=== PATIENT | female | born 1975 | race African-American/Black ===

== ENCOUNTER 2019-03-22 10:59 | Emergency (ER) | payer MEDICAID ==
[~2019-03-22] VITALS: Ht 167.6 cm; Wt 80.0 kg
[2019-03-22 11:27] VITALS: BP 140/80
== END 2019-03-22 11:41 | disposition home or self-care (01) ==
LOC: ER 10:59
DX: F43.20 Adjustment disorder, unspecified (principal); R42 Dizziness and giddiness; M79.7 Fibromyalgia; I10 Essential (primary) hypertension; F43.9 Reaction to severe stress, unspecified
CPT/HCPCS: 99283; 99284

== ENCOUNTER 2022-01-14 13:43 | Emergency (ER) | payer MEDICAID ==
[~2022-01-14] VITALS: Ht 157.5 cm; Wt 82.0 kg
[2022-01-14 13:47] VITALS: BP 140/83
[2022-01-14] MEDS ORDERED: IBUPROFEN 600MG TABLET PO ONE (14:45)
[2022-01-14] MEDS ORDERED: ACETAMINOPHEN 325MG TABLET PO ONE (14:45)
[2022-01-14] MEDS ORDERED: LIDO1ADH71 TP (15:02)
[2022-01-14] MEDS ORDERED: IBUP-2029 MT (15:02)
[2022-01-14] MEDS ORDERED: ACET-2708 MT (15:02)
== END 2022-01-14 15:15 | disposition home or self-care (01) ==
LOC: ER 14:16
DX: M25.532 Pain in left wrist (principal); M25.531 Pain in right wrist
CPT/HCPCS: 99283